=== PATIENT | female | born 2000 | race Caucasian/White ===

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

== ENCOUNTER 2018-05-12 06:03 | Day surgery (SDC) | payer BC ==
[2018-05-12] MEDS ORDERED: DIPRIVAN 200 MG/20 ML IV ONE (06:04)
[2018-05-12 06:28] VITALS: O2SAT 100
[2018-05-12] MEDS ORDERED: Lactated Ringers 1,000 ML IV SCH (06:30)
[2018-05-12] MEDS ORDERED: Lactated Ringers 1,000 ML IV ONE (06:35)
[2018-05-12 09:27] VITALS: BP 130/59; PULSE 79
--- NOTE | 2018-05-13 07:40 | OP ---
SURGERY DATE/TIME: 05/12/2018 0808 PREOPERATIVE DIAGNOSES: 1) Nausea and vomiting. 2) Dysphagia. POSTOPERATIVE DIAGNOSIS: Normal exam. PROCEDURE: EGD. SURGEON: Jasvir Resendiz M.D. ANESTHESIA: MAC by Issac Curtis CRNA. ESTIMATED BLOOD LOSS: None. SPECIMENS: None. DESCRIPTION OF PROCEDURE: After informed written consent was obtained, the patient was taken to the endoscopy suite. She underwent monitored anesthesia and a bite block was inserted. The endoscope was then inserted into the posterior oropharynx and under direct visualization the esophagus was traversed. The first and second portions of the duodenum were inspected after traversing the pylorus. The duodenum had normal mucosal appearance free of any lesions or defects. Upon removal from the pylorus the entire gastric cavity was closely inspected. There were no mucosal abnormalities. There was a normal rugated mucosal appearance. Upon withdrawal the gastroesophageal junction likewise was within normal limits. The entire esophageal mucosa was inspected and had no obvious abnormalities. There were no strictures or lesions present throughout the entire length of the esophagus. The scope was removed and the patient was transferred to the recovery room in good condition.
== END 2018-05-12 09:30 | disposition home or self-care (01) ==
LOC: SDC 06:03
PROVIDERS: ATTEND Family Medicine
DX: R11.2 Nausea with vomiting, unspecified (principal); R13.10 Dysphagia, unspecified
CPT/HCPCS: 84703; J2704

== ENCOUNTER 2018-12-08 20:55 | Observation (INO) | payer OTHER ==
[2018-12-08] MEDS ORDERED: Lactated Ringers 1,000 ML IV SCH (23:00)
[2018-12-08 23:41] LABS: BASOPHIL % 0.4 % (0.0-0.4); Basophil (Absolute #) 0.03 (0-0.4); Eosinophil % 0.4 % (0.00-5.0); Eosinophil (Absolute #) 0.03 (0-0.5); Granulocyte Absolute (ANC) 4.81 (1.4-6.9); Granulocytes % 60.7 % (36.0-66.0); Hematocrit 37.4 % (35-47); Hemoglobin 12.5 gm/dl (12.0-16.0); Lymphocytes % 31.6 % (24.0-44.0); Mean Cell Volume 87.6 fl (78-100); Mean Corpuscular Hemoglobin 29.3 pg (26-32); Mean Corpuscular Hgb Concent. 33.4 g/dl (32-36); Mean Platelet Volume 11.1 fl (6-9.5); Monocyte (Absolute #) 0.55 (0.0-1.3); Monocytes % 6.9 % (0.0-12.0); Platelet Count 231 K/mm3 (150-450); Red Blood Count 4.27 M/mm3 (4.1-5.4); Red Cell Distribution Width 12.1 % (11.5-14.0); White Blood Count 7.9 K/mm3 (4.0-10.5)
[2018-12-08] MEDS: Phenergan 25 MG INJ IV PRN (23:46)
[2018-12-08 23:53] LABS: ALBUMIN 4.2 g/dL (3.5-5.0); ALKALINE PHOSPHATASE 44 U/L (38-126); ANION GAP 13.3 MEQ/L (5-15); BLOOD UREA NITROGEN 11 mg/dL (7-17); CHLORIDE 105 mmol/L (98-107); Calcium 9.3 mg/dL (8.4-10.2); Carbon Dioxide 27 mmol/L (22-30); Creatinine 1 0.78 mg/dL (0.52-1.04); Glucose 104 mg/dL (74-106); Potassium 4.6 mmol/L (3.5-5.1); SGOT/AST 16 U/L (14-36); SGPT/ALT 14 U/L (0-35); SODIUM 140 mmol/L (137-145); Total Protein 7.1 g/dL (6.3-8.2)
[2018-12-09] MEDS: Sodium Chloride 0.9% 1000 ML 1,000 ML IV SCH ×3 (02:40→18:28)
[2018-12-09 03:59] LABS: Appearance CLEAR (CLEAR); Bilirubin NEGATIVE (NEGATIVE); Blood NEGATIVE Ery/ul (0-5); Epithelial Cells RARE /HPF (FEW); Glucose NEGATIVE (NEGATIVE); Ketones NEGATIVE (NEGATIVE); Leukocyte Esterase TRACE (NEGATIVE); Mucus SLIGHT /HPF (NEGATIVE); Nitrite NEGATIVE (NEGATIVE); Protein,Urine Dip NEGATIVE (Negative); Specific Gravity 1.019 (1.005-1.025); Urobilinogen NEGATIVE mg/dL (0-1)
[2018-12-09 04:06] LABS: Bacteria NONE SEEN /HPF (NEGATIVE)
[2018-12-09] MEDS: Phenergan 25 MG INJ IV PRN (07:39)
--- NOTE | 2018-12-09 07:46 | PCM.HP ---
History of Present Illness - Chief Complaint Chief Complaint: NAUSEA AND VOMITING History of Present Illness: is a 18 year old female pt of mine from [facility] with chronic depression who contacted me last night c/o 1d of nausea and vomiting, not tolerating any po. Denies fever, diarrhea, or abdominal pain. Decreased urination yesterday. She was directly admitted to med-surg (ICU overflow) last night and started on IVF and anti-emetics. Her CBC and CMP were unremarkable. This morning she continues to be nauseated and has not tried any fluids orally yet. - Review of Systems Abdominal/Gastrointestinal: Nausea, Vomiting, Appetite Changes Psychological: Depression, No Suicidal Ideations All Other Systems: Reviewed and Negative Medications & Allergies Home Medications: Home Medication List No Reportable Medications [No Reported Medications] 05/11/18 [History Confirmed 12/08/18] Allergies/Adverse Reactions: Allergies Allergy/AdvReac Type Severity Reaction Status Date / Time No Known Drug Allergies Allergy Verified 05/12/18 06:17 - Past Medical History Past Medical History: Yes Neurological History: Migraines ENT History: No Pertinent History Cardiac History: No Pertinent History Respiratory History: No Pertinent History Endocrine Medical History: Hyperthyroidism Musculoskelatal History: No Pertinent History GI Medical History: GERD History: No Pertinent History Pyscho-Social History: No Pertinent History Reproductive Disorders: No Pertinent History Comment: DUODENAL WEB WHEN PT WAS BORN; Viral tonsillitis - Female History Hx Last Menstrual Period: 11/16/18 Are you now?: No - Past Surgical History Past Surgical History: Yes Neuro Surgical History: No Pertinent History Cardiac History: No Pertinent History Respiratory Surgery: No Pertinent History GI Surgical History: Cholecystectomy Genitourinary Surgical Hx: No Pertinent History Musculskeletal Surgical Hx: No Pertinent History Female Surgical History: No Pertinent History Other Surgical History: DOUDENAL WEB SURGERY and appy at age 7 days- TUBES IN EARS - gallbladder removed - Social History Smoking Status: Never smoker Exposure to second hand smoke: No Alcohol: None Drug Use: none - Physical Exam Vital Signs: Vital Signs - 24 hr Temp Pulse Resp BP BP Pulse Ox 12/09/18 04:00 98.8 F 84 18 92/53 99 12/09/18 00:00 98.8 F 86 16 115/59 99 12/08/18 23:16 99.9 F 102 H 18 117/73 100 General Appearance: no apparent distress, alert Neurologic Exam: oriented x 3, cooperative Eye Exam: eyes nml inspection Ears, Nose, Throat Exam: moist mucous membranes Neck Exam: normal inspection Respiratory Exam: normal breath sounds, lungs clear, No crackles/rales, No rhonchi, No wheezing Cardiovascular Exam: regular rate/rhythm, normal heart sounds, No murmur Gastrointestinal/Abdomen Exam: soft, normal bowel sounds, No tenderness, No distention, No mass, No guarding, No rebound Back Exam: normal inspection, No CVA tenderness, No rash Extremity Exam: normal inspection, No pedal edema, No swelling Skin Exam: normal color, warm, No rash Results - Labs Lab/Micro Results: Lab Results-Last 24 Hours 12/08/18 12/08/18 12/09/18 Range/Units 23:37 23:37 03:53 WBC 7.9 (4.0-10.5) K/mm3 RBC 4.27 (4.1-5.4) M/mm3 Hgb 12.5 (12.0-16.0) gm/dl Hct 37.4 (35-47) % MCV 87.6 (78-100) fl MCH 29.3 (26-32) pg MCHC 33.4 (32-36) g/dl RDW 12.1 (11.5-14.0) % Plt Count 231 (150-450) K/mm3 MPV 11.1 H (6-9.5) fl Gran % 60.7 (36.0-66.0) % Eos # (Auto) 0.03 (0-0.5) Absolute Lymphs (auto) 2.50 (1.0-4.6) Absolute Monos (auto) 0.55 (0.0-1.3) Lymphocytes % 31.6 (24.0-44.0) % Monocytes % 6.9 (0.0-12.0) % Eosinophils % 0.4 (0.00-5.0) % Basophils % 0.4 (0.0-0.4) % Absolute Granulocytes 4.81 (1.4-6.9) Basophils # 0.03 (0-0.4) Sodium 140 (137-145) mmol/L Potassium 4.6 (3.5-5.1) mmol/L Chloride 105 (98-107) mmol/L Carbon Dioxide 27 (22-30) mmol/L Anion Gap 13.3 (5-15) MEQ/L BUN 11 (7-17) mg/dL Creatinine 0.78 (0.52-1.04) mg/dL Estimated GFR > 60.0 ML/MIN Glucose 104 (74-106) mg/dL Calcium 9.3 (8.4-10.2) mg/dL Total Bilirubin 0.40 (0.2-1.3) mg/dL AST 16 (14-36) U/L ALT 14 (0-35) U/L Alkaline Phosphatase 44 (38-126) U/L Serum Total Protein 7.1 (6.3-8.2) g/dL Albumin 4.2 (3.5-5.0) g/dL Urine Color YELLOW (YELLOW) Urine Appearance CLEAR (CLEAR) Urine pH 7.0 (5-6) Ur Specific [place] 1.019 (1.005-1.025) Urine Protein NEGATIVE (Negative) Urine Ketones NEGATIVE (NEGATIVE) Urine Blood NEGATIVE (0-5) Smooth/ul Urine Nitrite NEGATIVE (NEGATIVE) Urine Bilirubin NEGATIVE (NEGATIVE) Urine Urobilinogen NEGATIVE (0-1) mg/dL Ur Leukocyte Esterase TRACE (NEGATIVE) Urine WBC (Auto) NONE (0-5) /HPF Urine RBC (Auto) NONE (0-2) /HPF U Epithel Cells (Auto) RARE (FEW) /HPF Urine Bacteria (Auto) NONE SEEN (NEGATIVE) /HPF Urine Mucus (Auto) SLIGHT (NEGATIVE) /HPF Urine Culture Reflexed NO (NO) Urine Glucose NEGATIVE (NEGATIVE) mg/dL Assessment/Plan (1) Nausea & vomiting Current Visit: Yes Status: Acute Qualifiers: Vomiting type: unspecified Vomiting Intractability: non-intractable Qualified Code(s): R11.2 - Nausea with vomiting, unspecified Assessment & Plan: Still nauseated, not having vomiting currently. On IV fluids (NS at 100cc/hr). Labs were good at admission. Will order a.m. labs in the event she stays,but if she starts feeling well and tolerating po this afternoon she may be able to d /c to home. Code(s): R11.2 - NAUSEA WITH VOMITING, UNSPECIFIED
[2018-12-09] MEDS: Zofran 4 MG/2 ML VIAL IV PRN ×2 (11:30→17:06)
[2018-12-10] MEDS: Sodium Chloride 0.9% 1000 ML 1,000 ML IV SCH ×2 (02:10→10:08)
--- NOTE | 2018-12-10 08:09 | PCM.DS ---
Discharge Summary Date of Admission: 12/08/18 21:41 Admitting Physician: AVIS COOK Primary Care Provider: AVIS COOK Allergies Allergies No Known Drug Allergies Allergy (Verified 05/12/18 06:17) Hospital Summary - Hospital Course Hospital Course: Pt is a 18 yo pt of mine from [facility] who was directly admitted for nausea and vomiting. test was negative. Labs were benign. She was started on IV fluids and tolerated popsicles last night, but vomited apple juice. This morning she says she feels hungry so will be started on a bland diet. If she can tolerate po she will be discharged to home later today. - Vitals & Intake/Output Vital Signs: Vital Signs Temperature 98.4 F 12/10/18 07:32 Pulse Rate 86 12/10/18 07:32 Respiratory Rate 16 12/10/18 07:32 Blood Pressure 89/44 12/10/18 07:32 O2 Sat by Pulse Oximetry 99 12/10/18 07:32 Intake & Output: Intake & Output 12/07/18 12/08/18 12/09/18 12/10/18 11:59 11:59 11:59 11:59 Intake Total 1445 3189 Output Total 600 2100 Balance 845 1089 Weight 79.2 kg 79.4 kg - Lab Result Diagrams: 12/08/18 23:37 12/08/18 23:37 Lab Results-Last 24 Hrs: Lab Results-Last 24 Hours 12/09/18 Range/Units 11:35 Urine HCG, Qual NEGATIVE (Negative) Discharge Exam General Appearance: no apparent distress, alert Neurologic Exam: oriented x 3, cooperative Skin Exam: normal color, warm, dry, No rash Respiratory Exam: normal breath sounds, lungs clear, No crackles/rales, No rhonchi, No wheezing Cardiovascular Exam: regular rate/rhythm, normal heart sounds, No murmur Gastrointestinal/Abdomen Exam: soft, normal bowel sounds, No tenderness, No distention, No mass, No guarding, No rebound Back Exam: normal inspection, No rash Final Diagnosis/Problem List - Final Discharge Diagnosis/Problem (1) Nausea & vomiting Current Visit: Yes Status: Acute Assessment & Plan: doing better - once resolved will be discharged to home. - Discharge Disposition: Home, Self-Care Condition: Stable Prescriptions: No Action No Reportable Medications [No Reported Medications] Follow up with: AVIS COOK [Primary Care Provider] - 1 Week
[2018-12-10 13:16] VITALS: BP 108/55; PULSE 91; O2SAT 98
== END 2018-12-10 14:20 | disposition home or self-care (01) ==
LOC: MED SURG 21:41 → ICU 21:42 → MED SURG 12-09 12:09
PROVIDERS: ADMIT Family Medicine; ATTEND Family Medicine
DX: R11.2 Nausea with vomiting, unspecified (principal)
CPT/HCPCS: 36415; 80053; 81001; 84703; 85025; 87086; G0378; J2405; J2550